=== PATIENT | male | born 1985 | race Caucasian/White ===

== ENCOUNTER 2024-01-13 18:53 | Emergency (ER) | payer MEDICAID, SELFPAY ==
[2024-01-13 18:54] VITALS: BMI 23.0
--- NOTE | 2024-01-13 19:34 | PC.NURSE ---
called for pt from lobby/outside, no answerx1 @ 193
--- NOTE | 2024-01-13 19:49 | PC.NURSE ---
CALLED FOR PT FROM LOBBY/outside, no answer x2 @ 194
--- NOTE | 2024-01-13 20:12 | PC.NURSE ---
called for pt from lobby/outside, no answerx3 @ 2009
== END 2024-01-13 20:14 | disposition left against medical advice (07) ==
LOC: SERX 20:39
PROVIDERS: Emergency Provider Emergency Medicine
DX: Z53.21 Procedure and treatment not carried out due to patient leaving prior to being seen by health care provider (principal)

== ENCOUNTER 2024-11-10 14:20 | Emergency (ER) | payer MEDICAID, SELFPAY ==
[2024-11-10 14:21] VITALS: BMI 22.4
[2024-11-10 14:30] VITALS: BP 116/72; PULSE 78; RESP 18; TEMP 36.6; O2SAT 95
--- NOTE | 2024-11-10 14:40 | XR_ITS ---
Examination: Tibia-Fibula, left , 2 views Technique: Tibia-fibula AP lateral 2 views Date and time of exam: November 10, 2024, 1449 hours INDICATIONS: Laceration to the lower leg today, lower leg pain. FINDINGS: No fracture Soft tissue defect lower leg on the medial side No foreign body IMPRESSION: No fracture. No opaque foreign body
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
[2024-11-10] MEDS: LIDOCAINE HCL 1% 20 ML VIAL INFL (15:05)
== END 2024-11-10 16:31 | disposition home or self-care (01) ==
PROVIDERS: Emergency Provider Nurse Practitioner Family; PCP Family Medicine
DX: S81.812A Laceration without foreign body, left lower leg, initial encounter (principal); W25.XXXA Contact with sharp glass, initial encounter
CPT/HCPCS: 12002; 73590; 99283; J3490